=== PATIENT | male | born 1975 | race Caucasian/White ===

== ENCOUNTER 2017-02-26 18:39 | Emergency (ER) | payer BC, OTHER ==
[2017-02-26 18:44] VITALS: BP 131/87; PULSE 58; TEMP 98.4; BMI 32.5
--- NOTE | 2017-02-26 19:10 | PDOC ---
History of Present Illness - General Chief Complaint: Bite Stated Complaint: BITE Time Seen by Provider: 02/26/17 18:53 History Source: Patient Exam Limitations: No Limitations - History of Present Illness Initial Comments: 02/26/17 19:04 CHIEF COMPLAINT: Tick bite to back HISTORY OF PRESENT ILLNESS: Patient is a 41-year-old male no significant medical history currently on no medication patient reports camping yesterday, found a tick on his back today. to the ER with live tick in bag. Able to remove it fully. Less than 36 hour exposure, not engorged. No rash noted. 02/26/17 19:35 Timing/Duration: reports: just prior to arrival Associated Symptoms: reports: denies symptoms Past History - Past Medical History Allergies/Adverse Reactions: Allergies Allergy/AdvReac Type Severity Reaction Status Date / Time No Known Allergies Allergy Verified 02/26/17 18:40 Home Medications: Ambulatory Orders Doxycycline Hyclate 200 mg PO ONCE #1 tablet. 02/26/17 Asthma: No Diabetes: No HTN: No Other medical history: none - Surgical History Appendectomy: Yes - Psycho/Social/Smoking Cessation Hx Anxiety: No Suicidal Ideation: No Smoking Status: No Smoking History: Never smoked Have you smoked in the past 12 months: No Number of Cigarettes Smoked Daily: 0 Information on smoking cessation initiated: No Hx Alcohol Use: No Drug/Substance Use Hx: No Substance Use Type: None Review of Systems - Review of Systems Constitutional: No: Symptoms Reported Respiratory: No: Symptoms reported Cardiac (ROS): No: Symptoms Reported Musculoskeletal: No: Symptoms Reported Integumentary: No: Symptoms Reported, Rash Neurological: No: Symptoms reported Hematologic/Lymphatic: Yes: Symptoms Reported *Physical Exam - Vital Signs Last Vital Signs Temp Pulse Resp BP Pulse Ox 98.4 F 58 L 18 131/87 100 02/26/17 18:42 02/26/17 18:42 02/26/17 18:42 02/26/17 18:42 02/26/17 18:42 - Physical Exam General Appearance: Yes: Appropriately Dressed. No: Apparent Distress Neck: negative: Tender lateral, Tender midline Respiratory/Chest: positive: Lungs Clear, Normal Breath Sounds Lymphatic: negative: Adenopathy Musculoskeletal: positive: Normal Inspection Extremity: positive: Normal Capillary Refill Integumentary: positive: Normal Color, Dry. negative: Hives, Petechiae, Rash, Swelling, Ecchymosis, Bruising Neurologic: positive: Alert, Normal Mood/Affect Medical Decision Making - Medical Decision Making 02/26/17 19:36 A/P: Patient with tick exposure although it is a low risk exposure patient is requesting prophylactic medication, prescription for doxycycline 200 mg by mouth 1 ordered patient to follow-up with PMD in 2 weeks for testing patient currently denies any joint pain, no rash, noted tick bite to right posterior shoulder. She did go camping 2 days ago and is unsure exactly 1 tick adhered to skin. Patient was assuming it was yesterday when he went hiking. To follow- up as instructed. *DC/Admit/Observation/Transfer Diagnosis at time of Disposition: Tick bite Qualifiers: Encounter type: initial encounter Qualified Code(s): W57.XXXA - Bitten or stung by nonvenomous insect and other nonvenomous arthropods, initial encounter - Discharge Dispostion Admit: No - Prescriptions Prescriptions: Doxycycline Hyclate 200 mg PO ONCE #1 tablet.dr - Referrals Referrals: [facility] [Provider Group] - Patient Instructions Printed Discharge Instructions: How to Remove a Tick, DI for Lyme Disease Additional Instructions: Recommend follow-up with PMD for evaluation in 2 weeks.
== END 2017-02-26 19:59 | disposition home or self-care (01) ==
LOC: JERFT 18:39
DX: S40.261A Insect bite (nonvenomous) of right shoulder, initial encounter (principal); W57.XXXA Bitten or stung by nonvenomous insect and other nonvenomous arthropods, initial encounter; Y93.89 Activity, other specified; Y92.828 Other wilderness area as the place of occurrence of the external cause; Y99.8 Other external cause status
CPT/HCPCS: 99281-25